=== PATIENT | male | born 1990 | race Hispanic/Latino ===

== ENCOUNTER 2022-04-24 09:15 | Emergency (ER) | payer OTHER ==
--- OUTSIDE RECORDS SUMMARY | 2022-04-24 09:20 | XMS REPORT | Continuity of Care Document ---
:1990 Author Organization [facility] t Address [address] [place] [address] [place] [id number] Care Team Providers Name Role Phone Marilin Thompson DO Primary Care Physician JOSE Attending Clinician Unavailable MARILIN THOMPSON Attending Clinician Unavailable LAB02 Attending Clinician Unavailable Marilin Thompson DO Attending Clinician Sana MCKEON Attending Clinician Unavailable SHANIA Attending Clinician Unavailable Payers Payer Name Policy Type Policy Number Effective Date Expiration Date S steven [employer] 2 [id number] 2021 00:00:00 Problems This patient has no known problems. Allergies, Adverse Reactions, Alerts This patient has no known allergies or adverse reactions. Social History Social Habit Start Date Stop Date Quantity Comments Source History SDOH Zhane escobar Alcohol Binge Exposure to Not sure Zhane watts SARS-CoV-2 (event) History SDOH Zhane escobar Alcohol Frequency History SDOH Zhane escobar Alcohol Std Drinks Alcohol Comment 2021-11-28 2021-11-28 2x/month(4-5 Zhane Britton 00:00:00 00:00:00 beers each time) Alcohol intake 2021-11-28 2021-11-28 .29 /d Zhane khan 00:00:00 00:00:00 Sex [birth year] Zhane wilkes 00:00:00 00:00:00 Smoking Status Start Date Stop Date Source Never smoked tobacco Zhane davidson Medications Ordered Filled Start Stop Current Ordering Indication Dosage Frequency Signature Comments Components Source Medication Medication Date Date Medication? Clinician (SIG) Name Name No known No No known Kelse y medications 1-17 medication Se ybold 09:11: s 09 Vital Signs Vital Name Observation Time Observation Value Comments Source Systolic blood pressure 2021-11-28 15:13:00 116 mm[Hg] Zhane Seybold Diastolic blood 2021-11-28 15:13:00 70 mm[Hg] Nilsse y Seybold pressure Heart rate 2021-11-28 15:13:00 77 /min Zhane julesboluz Body temperature 2021-11-28 15:13:00 36.56 [place] Roxanna dhara Seybold Respiratory rate 2021-11-28 15:13:00 17 /min Roxanna jules Seybold Body height 2021-11-28 15:13:00 175.3 cm Zhane julesboluz Body weight 2021-11-28 15:13:00 94.892 kg Zhane julesboluz BMI 2021-11-28 15:13:00 30.89 kg/m2 Zhane blandon Oxygen saturation in 2021-11-28 15:13:00 98 /min Zhane Britton Arterial blood by Pulse oximetry Procedures This patient has no known procedures. Encounters Start End Encounter Admission Attending Care Care Encounter Source Date/Time Date/Time Type Type Clinicians Facility Department ID 2021-12-13 2021-12-13 Outpatient DAVID MUELLER [id number] Zhane 00:00:00 00:00:00 Guerrero MONGE 2021-12-09 2021-12-09 Outpatient ZHANE THOMPSON [id number] Zhane 00:00:00 00:00:00 JOSHUA Seybol d 2021-12-07 2021-12-07 Outpatient ZHANE THOMPSON [id number] Zhane 00:00:00 00:00:00 JOSHUA Seybol d 2021-11-28 2021-11-28 Outpatient LAB02 ZHANE MUELLER [id number] Zhane 10:20:00 10:20:00 Seybol d 2021-11-28 2021-11-28 Office MARGUERITE Thompson [id number] Zhnae 09:15:00 09:30:00 Visit Joshua Watts [id number] Reba [id number] 2021-10-21 2021-10-21 Outpatient ZHANE MCKEON [id number] Zhane 09:10:00 09:10:00 PARVEEN watts 2021-10-19 2021-10-19 Outpatient ZHANE JAUREGUI [id number] Zhane 09:10:00 09:10:00 CAMDEN watts Results This patient has no known results.
[2022-04-24 10:04] LABS: Absolute Lymphocytes (CBC) 2.9 K/uL (0.7-4.9); Hematocrit 45.5 % (39.6-49.0); Lymphocytes % 39.7 % (15.3-44.8); MPV 8.5 fL (7.6-11.3); RBC Red Blood Cell Count 5.21 M/uL (4.33-5.43)
[2022-04-24 10:15] LABS: Protime INR 1.05
[2022-04-24] MEDS ORDERED: METOCLOPRAMIDE 10 MG/2mL INJ ONE (10:30)
[2022-04-24] MEDS ORDERED: dexAMETHasone 10 MG/ML VIAL ONE (10:30)
[2022-04-24] MEDS ORDERED: NA CHLORIDE 0.9% 1,000 ML ONE (10:31)
--- NOTE | 2022-04-24 10:40 | RAD REPORT ---
EXAM DESCRIPTION: CT - Head Brain Wo Cont - 04/24/2022 9:59 am CLINICAL HISTORY: Numbness COMPARISON: None. TECHNIQUE: Computed axial tomography of the head was obtained. IV contrast was not requested. All CT scans are performed using dose optimization technique as appropriate and may include automated exposure control or mA/KV adjustment according to patient size. FINDINGS: An intracranial bleed is not seen . The ventricles are normal in caliber. No significant hypodense areas within the brain visualized No extra-axial fluid collection is noted. Fluid within the sinuses/ mastoids is not seen. IMPRESSION: No acute intracranial abnormality is seen.
--- NOTE | 2022-04-24 10:42 | RAD REPORT ---
EXAM DESCRIPTION: MRI - Brain Wo Cont - 04/24/2022 10:18 am CLINICAL HISTORY: Numbness COMPARISON: Head CT April 24, 2022 TECHNIQUE: Axial, sagittal, and coronal magnetic resonance images of the brain were obtained. FINDINGS: No significant abnormal signal within the brain Diffusion-weighted/ADC mapping does not reveal evidence of acute infarction. The ventricles are normal caliber. An extra-axial fluid collection is not noted. Fluid within the sinuses/mastoids is not seen IMPRESSION: No acute intracranial abnormality noted
--- NOTE | 2022-04-24 11:05 | EDPHYS ---
Physician Documentation [facility] Name: Laurent Saldana Age: 31 yrs Sex: Male : 1990 Arrival Date: 04/24/2022 Time: 09:18 Bed 10 Private MD: ED Physician Thanh Randolph HPI: 04/24 10:32 This 31 yrs old Male presents to ER via Ambulatory with complaints of Numbness rn Of Face. 10:32 This 31 yrs old Male presents to ER via Ambulatory with complaints of Numbness rn of right side of face and body. 10:32 The patient's problem is reported as paresthesias, in right upper extremity, in right rn lower extremity, in right side of face. Onset: The symptoms/episode began/occurred yesterday. Duration: The episode is continuous. The symptoms are alleviated by nothing. The symptoms are aggravated by nothing. Associated signs and symptoms: Pertinent positives: headache, Pertinent negatives: abdominal pain, ataxia, blurred vision, chest pain, seizure, shortness of breath, vomiting, weakness. Severity of symptoms: At their worst the symptoms were mild in the emergency department the symptoms are unchanged. The patient has not experienced similar symptoms in the past. The patient has not recently seen a physician. Pt reports numbness to right side of body and face, began yesterday, never completely went away but did seem to improve, still present today with new right sided headache. No hx of migraines or headache. No weakness. No vision changes. No chest pain. No trauma. Drove himself here and to [place], as well as [place]. No syncope or seizure.. Historical: - Allergies: 09:42 No Known Allergies; vg1 - Home Meds: 09:42 None [Active]; vg1 - PMHx: 09:42 None; vg1 - PSHx: 09:42 None; vg1 - Immunization history:: Client reports receiving the 2nd dose of the Covid vaccine. - Social history:: Smoking status: Patient denies any tobacco usage or history of. - Family history:: not pertinent. - Hospitalizations: : No recent hospitalization is reported. ROS: 10:32 Constitutional: Negative for fever, chills, and weight loss, Eyes: Negative for injury, rn pain, redness, and discharge, Neck: Negative for injury, pain, and swelling, Cardiovascular: Negative for chest pain, palpitations, and edema, Respiratory: Negative for shortness of breath, cough, wheezing, and pleuritic chest pain, Abdomen/GI: Negative for abdominal pain, nausea, vomiting, diarrhea, and constipation, Back: Negative for injury and pain, MS/Extremity: Negative for injury and deformity, Skin: Negative for injury, rash, and discoloration, Neuro: Negative for weakness and seizure. 10:32 All other systems are negative. Exam: 10:32 Constitutional: This is a well developed, well nourished patient who is awake, alert, rn and in no acute distress. Ambulatory without assistance or distress to triage. Head/Face: Normocephalic, atraumatic. Eyes: Pupils equal round and reactive to light, extra-ocular motions intact. Cardiovascular: Regular rate and rhythm. No pulse deficits. Respiratory: No increased work of breathing, no retractions or nasal flaring. Skin: Warm, dry MS/ Extremity: Pulses equal, no cyanosis. Neurovascular intact. Full, normal range of motion. Equal circumference. Neuro: Awake and alert, GCS 15, oriented to person, place, time, and situation. Cranial nerves II-XII grossly intact. Motor strength 5/5 in all extremities. Equal face and lower extremity sensation. + decreased RUE sensation when compared to LUE. Cerebellar exam normal. Normal gait. Vital Signs: 09:35 BP 130 / 92; Pulse 68; Resp 16; Temp 98.1; Pulse Ox 100% on R/A; Weight 90.72 kg; vg1 Height 5 ft. 9 in. (175.26 cm); Pain 6/10; 09:35 Body Mass Index 29.53 (90.72 kg, 175.26 cm) vg1 MDM: 09:33 Patient medically screened. rn 11:02 Differential diagnosis: CVA, metabolic disorder, anxiety, hyperventilation, atypical rn migraine, paresthesias. Data reviewed: vital signs, nurses notes, lab test result(s), radiologic studies, CT scan, MRI, and as a result, I will discharge patient. Counseling: I had a detailed discussion with the patient and/or guardian regarding: the historical points, exam findings, and any diagnostic results supporting the discharge/admit diagnosis, lab results, radiology results, the need for outpatient follow up, to return to the emergency department if symptoms worsen or persist or if there are any questions or concerns that arise at home. Response to treatment: the patient's symptoms have mildly improved after treatment, and as a result, I will discharge patient. Special discussion: I discussed with the patient/guardian in detail that at this point there is no indication for admission to the hospital. It is understood, however, that if the symptoms persist or worsen the patient needs to return immediately for re-evaluation. Based on the history and exam findings, there is no indication for further emergent testing or inpatient evaluation. I discussed with the patient/guardian the need to see the neurologist for further evaluation of the symptoms. ED course: Neg CT head/MRI brain, will dc home with neuro f/u and return precautions. Pt states gets worse during times of anxiety. . 04/24 09:44 Order name: CBC with Diff; Complete Time: 10:32 04/24 09:44 Order name: Basic Metabolic Panel; Complete Time: 10: 04/24 09:43 Order name: CT Head Brain wo Cont; Complete Time: 10:52 04/24 09:43 Order name: Brain Wo Cont MRI; Complete Time: 10:52 04/24 09:44 Order name: Protime (+inr); Complete Time: 10:32 04/24 09:44 Order name: Ptt, Activated; Complete Time: 10:32 04/24 09:44 Order name: IV Start; Complete Time: 09:56 rn Administered Medications: 10:34 Drug: Decadron - Dexamethasone 10 mg Route: IVP; Site: right antecubital; ss 11:26 Follow up: Response: No adverse reaction; Marked relief of symptoms; Pain is decreased ss 10:36 Drug: NS 0.9% 1000 ml Route: IV; Rate: 1000 ml; Site: right antecubital; ss 11:26 Follow up: IV Status: IV converted to saline lock; IV Intake: 800ml ss 10:38 Drug: Reglan (metoCLOPramide) 10 mg Route: IVP; Site: right antecubital; ss 11:26 Follow up: Response: No adverse reaction; Marked relief of symptoms; Pain is decreased ss Disposition Summary: 04/24/22 11:04 Discharge Ordered Location: Home rn Problem: new rn Symptoms: have improved rn Condition: Stable rn Diagnosis - Paresthesia of skin rn - Headache rn Followup: rn - With: Mike Tripp MD - When: As needed - Reason: Recheck today's complaints, Re-evaluation by your physician Discharge Instructions: - Discharge Summary Sheet rn - General Headache Without Cause rn - Paresthesia rn Forms: - Medication Reconciliation Form rn - Thank You Letter rn - Antibiotic epidemiology internship - Prescription Opioid Use rn Signatures: Dispatcher [employer] Thanh Agosto MD MD rn Smirch, Shelby, RN RN Caity Pandey RN RN vg1
--- NOTE | 2022-04-24 11:05 | ER ---
Nurse's Notes [facility] Name: Laurent Saldana Age: 31 yrs Sex: Male : 1990 Arrival Date: 04/24/2022 Time: 09:18 Bed 10 Private MD: Diagnosis: Paresthesia of skin;Headache Presentation: 04/24 09:35 Chief complaint: Patient states: "Yesterday I took a nap and I woke up and the Right vg1 side of my body was numb" States the numbness comes and goes since yesterday. Denies headache at this time. Coronavirus screen: Vaccine status: Patient reports receiving the 2nd dose of the covid vaccine. Client denies travel out of the [place] in the last 14 days. Ebola Screen: Patient denies exposure to infectious person. Patient denies travel to an Ebola-affected area in the 21 days before illness onset. Initial Sepsis Screen: Does the patient meet any 2 criteria? No. Patient's initial sepsis screen is negative. Does the patient have a suspected source of infection? No. Patient's initial sepsis screen is negative. Risk Assessment: Do you want to hurt yourself or someone else? Patient reports no desire to harm self or others. Onset of symptoms was April 23, 2022. 09:35 Method Of Arrival: Ambulatory vg1 09:35 Acuity: BRIEN 3 vg1 Triage Assessment: 09:42 General: Appears uncomfortable, Behavior is calm, cooperative. Pain: Complains of pain vg1 in right arm Pain currently is 6 out of 10 on a pain scale. Neuro: Castro Agitation-Sedation Scale (RASS): 0 - Alert and Calm Level of Consciousness is awake, alert, obeys commands, Oriented to person, place, time, situation, Barrel Leveler are weak on right Moves all extremities. Gait is steady, Speech is normal, Facial symmetry appears normal. Historical: - Allergies: 09:42 No Known Allergies; vg1 - Home Meds: :42 None [Active]; vg1 - PMHx: 09:42 None; vg1 - PSHx: 09:42 None; vg1 - Immunization history:: Client reports receiving the 2nd dose of the Covid vaccine. - Social history:: Smoking status: Patient denies any tobacco usage or history of. - Family history:: not pertinent. - Hospitalizations: : No recent hospitalization is reported. Screenin:56 Abuse screen: Denies threats or abuse. Denies injuries from another. Nutritional ss screening: No deficits noted. Tuberculosis screening: Never had TB. Fall Risk None identified. Assessment: 09:56 Reassessment: PT to CT and MRI now VIA wheelchair. General: Appears in no apparent ss distress. comfortable, Behavior is calm, cooperative. Neuro: Level of Consciousness is awake, alert, obeys commands, Oriented to person, place, time, situation. Cardiovascular: Capillary refill < 3 seconds is brisk in bilateral fingers. Respiratory: Airway is patent Respiratory effort is even, unlabored, Respiratory pattern is regular, symmetrical. Derm: Skin is intact, is healthy with good turgor, Skin is dry, Skin is pink, warm \\T\\ dry. normal. 10:38 Reassessment: Patient appears in no apparent distress at this time. Patient and/or ss family updated on plan of care and expected duration. Pain level reassessed. Patient is alert, oriented x 3, equal unlabored respirations, skin warm/dry/pink. awaiting for MRI and CT results. 11:03 Reassessment: Pt states, "It seems to happen whenever I get nervous. Like when I went in to have my MRI, it happened again." Pt ambulated to restroom with steady gait. 11:09 Reassessment: awaiting for fluids to finish infusing prior to discharge. Vital Signs: 09:35 BP 130 / 92; Pulse 68; Resp 16; Temp 98.1; Pulse Ox 100% on R/A; Weight 90.72 kg; vg1 Height 5 ft. 9 in. (175.26 cm); Pain 6/10; 09:35 Body Mass Index 29.53 (90.72 kg, 175.26 cm) vg1 ED Course: 09:18 Patient arrived in ED. rg4 09:33 Thanh Randolph MD is Attending Physician. rn 09:42 Triage completed. vg1 09:42 Arm band placed on. vg1 09:56 Beatrice Koch, SEAN is Primary Nurse. 09:56 Patient has correct armband on for positive identification. Bed in low position. Call light in reach. Adult w/ patient. 09:56 Protime (+inr) Sent. ss 09:56 Ptt, Activated Sent. ss 09:56 Basic Metabolic Panel Sent. ss 09:56 CBC with Diff Sent. ss 09:56 Inserted saline lock: 20 gauge in right antecubital area, using aseptic technique. ss Blood collected. 10:00 CT Head Brain wo Cont In Process Unspecified. EDMS 10:14 Brain Wo Cont MRI In Process Unspecified. EDMS 11:04 Mike Tripp MD is Referral Physician. rn 11:26 No provider procedures requiring assistance completed. IV discontinued, intact, ss bleeding controlled, No redness/swelling at site. Pressure dressing applied. Administered Medications: 10:34 Drug: Decadron - Dexamethasone 10 mg Route: IVP; Site: right antecubital; ss 11:26 Follow up: Response: No adverse reaction; Marked relief of symptoms; Pain is decreased ss 10:36 Drug: NS 0.9% 1000 ml Route: IV; Rate: 1000 ml; Site: right antecubital; ss 11:26 Follow up: IV Status: IV converted to saline lock; IV Intake: 800ml ss 10:38 Drug: Reglan (metoCLOPramide) 10 mg Route: IVP; Site: right antecubital; ss 11:26 Follow up: Response: No adverse reaction; Marked relief of symptoms; Pain is decreased ss Medication: 09:56 VIS not applicable for this client. ss Intake: 11:26 IV: 800ml; Total: 800ml. ss Outcome: 11:04 Discharge ordered by . rn 11:26 Discharged to home ambulatory. ss 11:26 Condition: good 11:26 Discharge instructions given to patient, family, Instructed on discharge instructions, follow up and referral plans. medication usage, Demonstrated understanding of instructions, follow-up care, medications. 11:27 Patient left the ED. ss Signatures: Dispatcher [employer] EDTX Thanh Randolph MD MD rn Smirch, Shelby, RN RN ss Garcia, Rubi rg4 Caity Tenorio RN RN vg1
[2022-04-24 11:44] VITALS: BP 130/92; TEMP 98.1; O2SAT 100
== END 2022-04-24 11:27 | disposition home or self-care (01) ==
LOC: ER 09:15
DX: R20.2 Paresthesia of skin (principal); R51.9 Headache, unspecified
CPT/HCPCS: 96361; 85025; 80048; 36415; 85610; 85730; 70450; 70551; 96375; 96374; 99284; J2765; J1100; J7030